=== PATIENT | male | born 1965 | race Caucasian/White ===

== ENCOUNTER 2019-06-15 19:20 | Emergency (ER) | payer OTHER ==
[2019-06-15 19:35] VITALS: BP 162/112
--- NOTE | 2019-06-15 19:51 | UC ---
Abdominal Pain Male HPI - HPI Summary HPI Summary: Patient is a 54-year-old male, history of hypertension, here with abdominal pain. Patient's had 2 days of right upper quadrant abdominal pain. Patient's pain comes after he eats. Yesterday, patient's pain was mild in nature. Today after eating lunch, patient had severe right upper quadrant pain that has not relented. Patient is associated nausea, loose stools, subjective fever, chills. Patient Valatie symptoms at this before. Patient has no vomiting, dysuria, hematuria, rectal bleeding. Medications reviewed - History of Current Complaint Chief Complaint: UCAbdominalPain Stated Complaint: ABD PAIN Time Seen by Provider: 06/15/19 19:39 Hx Obtained From: Patient Onset/Duration: Gradual Onset Severity Initially: Mild Severity Currently: Moderate Pain Intensity: 6 - Allergies/Home Medications Allergies/Adverse Reactions: Allergies Allergy/AdvReac Type Severity Reaction Status Date / Time No Known Allergies Allergy Verified 06/15/19 19:35 Home Medications: Home Medications Vacepa* 06/15/19 [History] PMH/Surg Hx/FS Hx/Imm Hx Previously Healthy: Yes Cardiovascular History: Hypertension - Surgical History Surgical History: Yes Surgery Procedure, Year, and Place: KNEE SURGERY - Family History Known Family History: Positive: Non-Contributory - Social History Alcohol Use: Occasionally Alcohol Amount: 8 DRINKS/WEEK Substance Use Type: None Smoking Status (MU): Never Smoked Tobacco Review of Systems All Other Systems Reviewed And Are Negative: Yes Constitutional: Positive: Fever, Chills ENT: Positive: Dental Pain. Negative: Sore Throat Respiratory: Negative: Shortness Of Breath, Cough Gastrointestinal: Positive: Abdominal Pain, Diarrhea, Nausea Genitourinary: Negative: Dysuria, Hematuria Physical Exam - Summary Physical Exam Summary: Vital Signs Reviewed: Yes A+Ox3, no distress Eyes: Conjunctiva Clear, PERRL. EOM intact and full ENT: Hearing grossly normal TM x 2 clear, moist, uvula midline, no exudate, no erythema Neck: Positive: Supple Respiratory: Positive: No respiratory distress, No accessory muscle use + CTA throughout no w/r Cardiovascular: RRR nl s1, s2 no m/r CBT <2 sec abd with tenderness to palpation the right upper quadrant. No rebound or guarding. Negative Cotter's sign. Musculoskeletal Exam: RODRIGUEZ x 4 without difficulty Strength Intact, ROM Intact Neurological: Positive: Alert, + sensation throughout Psychological: Positive: Normal Response To Family Skin: no rash, no ecchymosis Triage Information Reviewed: Yes Vital Signs: Initial Vital Signs Temp 97.9 F 06/15/19 19:29 Pulse 75 06/15/19 19:29 Resp 16 06/15/19 19:29 BP 162/112 06/15/19 19:29 Pulse Ox 95 06/15/19 19:29 Abd Pain Male Course/Dx - Course Course Of Treatment: Patient is here with right upper quadrant pain that is worse after eating. Patient has subjective fever at home. Given patient's pain location, symptoms constellation, patient was sent to the emergency department via POV for further evaluation. - Differential Dx/Clinical Impression Differential Diagnosis/HQI/PQRI: Abdominal Aortic Aneurysm, Appendicitis, Diverticulitis, Gall Bladder Disease, Prostatitis, Renal Colic, Other Provider Diagnosis: RUQ pain, Nausea, Chills Discharge - Sign-Out/Discharge Documenting (check all that apply): Patient Departure All imaging exams completed and their final reports reviewed: No Studies - Discharge Plan Condition: Stable Disposition: HOME-RECOMMEND TO ED Referrals: James Craig MD [Primary Care Provider] - Additional Instructions: Please go straight to the emergency department to have your abdominal pain worked up - Billing Disposition and Condition Condition: STABLE Disposition: Home-Recommend to ED
== END 2019-06-15 19:54 | disposition home health service (06) ==
LOC: UCEAST 19:20
DX: R10.11 Right upper quadrant pain (principal); R11.0 Nausea; R68.83 Chills (without fever); I10 Essential (primary) hypertension
CPT/HCPCS: 99212; G0463

== ENCOUNTER 2019-06-15 20:09 | Emergency (ER) | payer OTHER ==
[2019-06-15] MEDS ORDERED: NS 0.9% 1000 ML** 2,000 ML IV ONE (22:40)
[2019-06-15] MEDS ORDERED: Ketorolac INJ* 30 MG/ML 1 ML VIAL IV PUSH ONE (22:41)
[2019-06-15] MEDS ORDERED: Ondansetron INJ* 2 MG/ML VIAL IV ONE (22:41)
--- NOTE | 2019-06-15 22:45 | ED ---
Abdominal Pain/Male - HPI Summary HPI Summary: The patient is a 54 y/o M presenting to [facility] with a chief complaint of sudden onset epigastric pain starting yesterday around lunch time. He reports that he began to experience the epigastric pain that seemed to subside overnight, but then returned today after eating lunch, which consisted of chicken, vegetables, and pasta. He also ate breakfast this morning. With the abdominal pain, he has been experiencing loose, watery diarrhea, with the last episode occurring around 1430 today, and he has since had a decreased appetite, and he hasnt eaten dinner. He additionally c/o diaphoresis. The pain is also aggravated by movement and alleviated by rest. He denies hematochezia. He has not had this pain before. Currently, the pain is rated 4/10 in severity. PMHx: HTN, GERD, umbilical hernia (Dr. Moses). Nonsmoker, occasional EtOH, no substance use. - History of Current Complaint Chief Complaint: EDAbdPain Stated Complaint: ABD PAIN, SENT FROM [facility] PER PT Time Seen by Provider: 06/15/19 21:54 Hx Obtained From: Patient Onset/Duration: Sudden Onset, Lasting Days - since yesterday around lunch time, Still Present Timing: Lasting Days Severity Initially: Moderate Severity Currently: Mild Pain Intensity: 4 Pain Scale Used: 0-10 Numeric Location: Epigastric Radiates: No Character: Dull Aggravating Factor(s): Food, Movement Alleviating Factor(s): NPO, Other: - rest Associated Signs And Symptoms: Positive: Diaphoresis, Decreased Appetite, Nausea , Other - diarrhea. Negative: Blood in Stool, Vomiting - Allergies/Home Medications Allergies/Adverse Reactions: Allergies Allergy/AdvReac Type Severity Reaction Status Date / Time No Known Allergies Allergy Verified 06/15/19 20:12 PMH/Surg Hx/FS Hx/Imm Hx Endocrine/Hematology History: Denies: Hx Diabetes Cardiovascular History: Reports: Hx Hypertension GI History: Reports: Other GI Disorders - umbilical hernia being followed by Dr. Moses - Surgical History Surgical History: Yes Surgery Procedure, Year, and Place: KNEE SURGERY Infectious Disease History: No Infectious Disease History: Denies: Traveled Outside the [place] in Last 30 Days - Family History Known Family History: Positive: Hypertension - Social History Alcohol Use: Occasionally Alcohol Amount: 8 DRINKS/WEEK Hx Substance Use: No Substance Use Type: Reports: None Hx Tobacco Use: No Smoking Status (MU): Never Smoked Tobacco Review of Systems Positive: Skin Diaphoresis Positive: Abdominal Pain - epigastric, Diarrhea - losse, watery, Nausea, Other - NEGATIVE: hematochezia. Negative: Vomiting All Other Systems Reviewed And Are Negative: Yes Physical Exam - Summary Physical Exam Summary: Appearance: Well-appearing, Well-nourished, lying in bed comfortably Skin: Warm, dry, no obvious rash Eyes: sclera anicteric, no conjunctival pallor ENT: mucous membranes moist, pharynx appears normal Neck: Supple, nontender Respiratory: Clear to auscultation, no signs of respiratory distress Cardiovascular: Normal S1, S2. No murmurs. Normal distal pulses in tibial and radial bilaterally. Abdomen: Soft, mild epigastric tenderness, no peritoneal signs, normal active bowel sounds present Musculoskeletal: Normal, Strength/ROM Intact Neurological: A&Ox3, awake and alert, mentation is normal, speech is fluent and appropriate Psychiatric: affect is normal, does not appear anxious or depressed Triage Information Reviewed: Yes Vital Signs On Initial Exam: Initial Vitals Temp Pulse Resp BP Pulse Ox 98.6 F 69 16 202/136 96 06/15/19 20:11 06/15/19 20:11 06/15/19 20:11 06/15/19 20:11 06/15/19 20:11 Vital Signs Reviewed: Yes Diagnostics - Vital Signs Vital Signs Temp Pulse Resp BP Pulse Ox 06/15/19 20:11 98.6 F 69 16 202/136 96 - Laboratory Result Diagrams: 06/15/19 00:00 06/15/19 00:00 Lab Statement: Any lab studies that have been ordered have been reviewed, and results considered in the medical decision making process. - Ultrasound Gallbladder US Ultrasound Interpretation Completed By: Radiologist Summary of Ultrasound Findings: Impression: Nonobstructive right nephrolithiasis. ED physician has reviewed this report. Re-Evaluation - Re-Evaluation First Eval Re-Evaluation Time: 02:45 Comment: We discussed results and discharge plan. Abdominal Pain Male Course/Dx - Course Course Of Treatment: Patient is a 54 y/o M with cc of sudden onset epigastric pain starting yesterday around lunch time which subsided overnight and returned today after eating lunch with development of diarrhea that persisted throughout today. Additionally c/o decreased appetite, nausea, and diaphoresis. Denies blood in stool and vomiting. PMHx: umbilical hernia being followed by Dr. Moses. Upon physical exam, the patient exhibits mild epigastric tenderness without peritoneal signs. In the ED course, the patient was administered fluids , Zofran, and Toradol. Blood work within normal limits. Gallbladder Ultrasound Impression: Nonobstructive right nephrolithiasis. Patient will be discharged home. He agrees with this plan. - Diagnoses Provider Diagnoses: Abdominal pain Discharge - Sign-Out/Discharge Documenting (check all that apply): Patient Departure - Patient will be discharged home. Patient Received Moderate/Deep Sedation with Procedure: No - Discharge Plan Condition: Good Disposition: HOME Prescriptions: Ondansetron ODT TAB* [Zofran 4 MG Odt TAB*] 8 mg PO Q6H PRN #15 tab.odt PRN Reason: Nausea Patient Education Materials: Peptic Ulcer (ED) Referrals: Jill Ogden MD [Medical Doctor] - Additional Instructions: Continue your medication for now, and I have prescribed some zofran for your nausea. Hopefully things will start to get better with time, but if not or if you're getting worse we should see you back here. Otherwise please call the gastroenterology office tomorrow to make a followup appointment. - Billing Disposition and Condition Condition: GOOD Disposition: Home - Attestation Statements Document Initiated by Americo: Yes Documenting Scribe: Lucretia Le Provider For Whom Americo is Documenting (Include Credential): Dr. John Pascal MD Scribe Attestation: ILucretia scribed for Dr. John Pascal MD on 06/20/19 at 0140. Scribe Documentation Reviewed: Yes Provider Attestation: The documentation as recorded by the Lucretia stockton accurately reflects the service I personally performed and the decisions made by me, Dr. John Pascal MD Status of Americo Document: Viewed
[2019-06-16 00:06] LABS: ABS Basophils 0.1 10^3/ul (0-0.2); ABS Lymphocytes 1.3 10^3/ul (1.0-4.8); ABS Monocytes 0.6 10^3/ul (0-0.8); ABS Neutrophils 4.3 10^3/ul (1.5-7.7); Eosinophil % 0.6 %; Hematocrit 41 % (42-52); Hemoglobin 14.3 g/dL (14.0-18.0); Lymphocyte % 21.2 %; Mean Corpuscular HGB Conc 35 g/dL (31-36); Mean Corpuscular Hemoglobin 31 pg (27-31); Mean Corpuscular Volume 89 fL (80-94); Nucleated Red Blood Cells % 0.1; Platelet Count 187 10^3/uL (150-450); Red Cell Distribution Width 14 % (10-15); White Blood Count 6.3 10^3/uL (3.5-10.8)
[2019-06-16 00:21] LABS: Albumin 4.2 g/dL (3.2-5.2); Albumin/Globulin Ratio 1.8 (1-3); BUN/Creatinine Ratio 14.6 (8-20); C Reactive Protein 1.51 mg/L (<8.01); EGFR Non-African American 97.5 (>60); Globulin 2.3 g/dL (2-4); Potassium 3.8 mmol/L (3.5-5.0); Total Bilirubin 0.5 mg/dL (0.2-1.0); Total Protein 6.5 g/dL (6.4-8.9)
[2019-06-16 03:16] VITALS: BP 158/98
== END 2019-06-16 03:15 | disposition home or self-care (01) ==
LOC: ED 20:09
DX: R10.9 Unspecified abdominal pain (principal); I10 Essential (primary) hypertension; K21.9 Gastro-esophageal reflux disease without esophagitis; K42.9 Umbilical hernia without obstruction or gangrene; N20.0 Calculus of kidney
CPT/HCPCS: 36415; 76705; 80053; 83690; 85025; 86140; 96361; 96374; 96375; 99282; J1885; J2405

== ENCOUNTER 2019-10-21 09:53 | Day surgery (SDC) | payer OTHER ==
[~2019-10-21 09:53] MED LIST: Acetaminophen TAB* 325 MG PO ONE; Buffered Lidocaine 1% SYRIN* 1 ML/SYRINGE INTRADERM ONE; Famotidine IV* 10 MG/ML 2 ML (20 mg) IV ONE; Gabapentin CAP(*) 300 MG PO ONE; Lactated Ringers 1000 ML Bag* 1,000 ML IV SCH
[2019-10-21] MEDS ORDERED: Famotidine IV* 10 MG/ML 2 ML (20 mg) ONE (11:42)
[2019-10-21] MEDS ORDERED: Buffered Lidocaine 1% SYRIN* 1 ML/SYRINGE INTRADERM ONE (11:42)
[2019-10-21] MEDS ORDERED: Gabapentin CAP(*) 300 MG ONE (11:42)
[2019-10-21] MEDS ORDERED: Acetaminophen TAB* 325 MG ONE (11:42)
[2019-10-21] MEDS ORDERED: ceFAZolin 2 GM in NS PREMIX(*) 2 GM/100 ML BAG IVPB ONE (11:42)
[2019-10-21] MEDS ORDERED: Midazolam* 1 MG/ML 2 ML VIAL (2 MG) ONE (12:01)
[2019-10-21] MEDS ORDERED: fentaNYL* 50 MCG/ML 2 ML VIAL (100 MCG VIAL) ONE ×2 (12:01→13:12)
[2019-10-21] MEDS ORDERED: Lidocaine 1% INJ* 10 MG/ML 30 ML SDV ONE (12:50)
[2019-10-21] MEDS ORDERED: Bupivacaine 0.25% EPI 200,000* 30 ML SDV ONE (12:51)
[2019-10-21] MEDS ORDERED: Propofol* 10 MG/ML 20 ML BTL ONE (12:58)
[2019-10-21] MEDS ORDERED: Dexamethasone IV* 4 MG/ML 1 ML (4 MG) ONE (12:58)
[2019-10-21] MEDS ORDERED: Ketorolac INJ* 30 MG/ML 1 ML VIAL ONE (12:58)
[2019-10-21] MEDS ORDERED: Lidocaine 2% PF * 5 ML VIAL ONE (12:58)
[2019-10-21] MEDS ORDERED: PROCHLORPERAZINE INJ 5 MG/ML 2 ML VIAL IV PRN (13:10)
[2019-10-21] MEDS ORDERED: fentaNYL* 50 MCG/ML 2 ML VIAL (100 MCG VIAL) IV PRN (13:10)
[2019-10-21] MEDS ORDERED: DiMENhydriNATE IV* 50 MG/ML VIAL IV PUSH PRN (13:10)
[2019-10-21] MEDS ORDERED: HYDROcodone/ACETAMIN 5-325 MG* 1 TAB PO PRN ×2 (13:10)
[2019-10-21] MEDS ORDERED: Ondansetron INJ* 2 MG/ML VIAL IV PRN (13:10)
[2019-10-21] MEDS ORDERED: Naloxone* 0.4 MG/ML 1 ML VIAL IV PRN (13:10)
[2019-10-21] MEDS ORDERED: Ondansetron INJ* 2 MG/ML VIAL ONE (13:58)
--- NOTE | 2019-10-21 14:26 | OP ---
Operative Report - Blank - Operative Report Date of Operation: 10/21/19 Note: OPERATIVE NOTE Pre-Operative Diagnosis:Umbilical hernia Post-Operative Diagnosis:Same Procedure:Open repair with mesh of umbilical hernia Surgeon: Franklyn Moses MD Supercalender Operator: Sabina Gresham MD Anesthesia: Local with MAC with Dr. Benitez IVF:1 liter of crystalloid EBL:min Specimen:None Drain: none Wound Class:One Findings: 8.[address] hernia patch TO PACU
[2019-10-21 16:04] VITALS: BP 132/94
--- NOTE | 2019-10-21 22:04 | OP ---
CC: [facility] OPERATIVE REPORT: DATE OF OPERATION: 10/21/19 DATE OF : 63 SURGEON: Igor Moses MD. IT SECURITY MANAGER: Leanne Gresham MD. ANESTHESIOLOGIST: Dr. Benitez. ANESTHESIA: General with local. PRE-OP DIAGNOSIS: Umbilical hernia. POST-OP DIAGNOSIS: Umbilical hernia. OPERATIVE PROCEDURE: Open repair with mesh of an umbilical hernia. ESTIMATED BLOOD LOSS: Minimal. IV FLUIDS: 1 L of crystalloid. SPECIMEN: None. DRAINS: None. COMPLICATIONS: None. WOUND CLASSIFICATION: I. FINDINGS: The umbilical hernia was repaired with a Ventralex ST Bard 8.2 cm circular mesh. DESCRIPTION OF PROCEDURE: Written informed consent was obtained, the abdomen was marked with indelib le ink and preoperative antibiotics were administered. The patient was taken to the operating room a nd placed in the supine position. Sequential compression devices and a warming blanket were applied. The anesthesia was administered. The abdomen was prepped and draped in the usual sterile fashion. Time-out verification was completed. 1% lidocaine mixed with 0.25% Marcaine was infiltrated extensively around the umbilicus and a semicir cular incision was made inferior to the umbilicus and carried down to the midline fascia inferior to the umbilicus. The umbilical stalk was encircled with a 1/4 inch Kan drain and the skin overlyin g the apparent preperitoneal fat hernia through the hernia defect was excised and from the skin. At this point, we were able to identify the hernia defect and the fascial edge was approximately 2 to 2.5 cm in diameter. The peritoneal cavity was not entered at this point. It was not entered at all during the remaining portion of this dissection. The preperitoneal space was then developed using a combination of blunt and sharp dissection just und erneath the muscle in preparation for placement of the underlying mesh. Hemostasis in the extraperitoneum was achieved. An 8.2 cm circular Bard Ventralex ST mesh was then placed into this position with a care to prevent w rinkling and it covered the defect nicely. It was sutured into position using 4 separate 0-Vicryl ho rizontal mattress sutures to the underside of the fascia. The [place] fascia was then closed in a transverse orientation with interrupted #1 Ethibond sutures. The wound was then closed in layers of 3-0 Vicryl and 4-0 Vicryl suture. Steri-Strips and sterile dr essings were applied. The patient tolerated the procedure well, and was taken to recovery room in st able condition. [id number]/[facility] #: [id number]
== END 2019-10-21 16:10 | disposition home or self-care (01) ==
LOC: OR 09:53
PROVIDERS: ATTEND Surgery
PROC: 0WUF0JZ Supplement Abdominal Wall with Synthetic Substitute, Open Approach (ICD-10-PCS; principal; 2019-10-21 11:30)
DX: K42.9 Umbilical hernia without obstruction or gangrene (principal); K21.9 Gastro-esophageal reflux disease without esophagitis
CPT/HCPCS: A9270-GY; C1781; J0690; J1100; J1885; J2250; J2405; J2704; J3010

== ENCOUNTER 2020-01-14 14:21 | Inpatient (IN) | payer OTHER ==
[2020-01-14] MEDS ORDERED: EPINEPHrine SYR 0.1MG/ML* SYRINGE ONE ×8 (14:27→18:54)
[2020-01-14] MEDS ORDERED: Sodium Bicarbonate 8.4%* 50 ML SYRINGE ONE ×4 (14:30→18:57)
--- NOTE | 2020-01-14 14:31 | ED ---
Cardiac Resuscitation - HPI Summary HPI Summary: Patient is a 54 year old male brought in by EMS for shortness of breath. Patient recently travelled from [place] to [place]. Patient felt SOB since yesterday. Patient said about 5 words, rolled over to his side, stopped responding, and lost pulses. At that time (1417), an ABC alert was called. Patient initially in PEA arrest after being placed on the monitor. Patient had IO inserted for access. Patient received multiple rounds of CPR, at one point was in VFIB, and received 200 jolts of defibrillation. Patient received multiple rounds of epinephrine, 2 rounds of BICARB, 2 grams of magnesium, 4 mgs of Narcan, and One amp of dextrose. 50 mgs of TPA was given for possible PE due to recent travel. Patient was in PEA arrest for most of the resuscitation. Patient eventually returned to spontaneous circulation, when an EKG was performed which showed slight lateral ST elevations. During the resuscitation, patient was intubated with an 8-0 tube and a triple lumen CVL was placed in the right femoral vein. Patient is a level 5 caveat due to extremis. - History of Current Complaint Stated Complaint: DIFF BREATHING Hx Obtained From: EMS Hx From Patient Unobtainable Due To: Extremis Arrest Witnessed: Yes - Prehospital Findings Airway: Patent Breathing: Respiratory Distress Circulation/Rhythm: Spontaneous Pulses Present Disability/Neurologic: Responsive - Prehospital Response Airway: Patent Circulation/Rhythm: Spontaneous Pulses Present - Allergies/Home Medications Allergies/Adverse Reactions: Allergies Allergy/AdvReac Type Severity Reaction Status Date / Time No Known Allergies Allergy Verified 10/14/19 09:03 Home Medications: Home Medications Tadalafil [Cialis] 5 mg PO QAM 08/29/16 [History Confirmed 10/21/19] Icosapent Ethyl [Vascepa] 0.5 gm PO BID 09/05/19 [History Confirmed 10/21/19] Metoprolol Tartrate TAB* [Lopressor TAB*] 25 mg PO BID 10/14/19 [History Confirmed 10/21/19] Omeprazole 40 mg PO QAM 10/14/19 [History Confirmed 10/21/19] Valsartan/HCTZ 160/12.5(NF) [Diovan HCT 160/12.5 (NF)] 1 tab PO QAM 10/14/19 [ History Confirmed 10/21/19] - Past Medical History Past Medical History: Unobtainable Due to Extremis - Family History Family History: Unobtainable Due to Extremis - Social History Social History: Unobtainable Due to Extremis - Review of Systems Review of Systems: Other: - Difficulty breathing, Cardiac Arrest. Rest is level 5 caveat due to extremis as patient arrested before full story could be obtained. Physical Examination - Summary Physical Exam Summary: Constitutional: Initially in respiratory distress, then unresponsive, CPR in progress. Skin: Purple and mottled skin HENT: Normocephalic; Atraumatic Eyes: SClera anicteric, no conjuctival pallor Neck: (-) JVD, (-) Tracheal deviation Cardio: No pulses palpable prior to resuscitation. Pulmonary/Chest wall: Initially tachypnic and in respiratory distress, and then no effort. Patient intubated. Abd: Soft Musculoskeletal: (-) Edema. No signs of trauma. Lymph: (-) Cervical adenopathy Neuro: Unresponsive Psych: deferred - Physical Examination Triage Information Reviewed: Yes Procedures - Sedation Patient Received Moderate/Deep Sedation with Procedure: No - Central Line Right Femoral Central Line Position: femoral (R) Complications: none - Intubation Time of Intubation: 14:18 Intubation Method: orotracheal Tube Size (cm): 8.0 Intubation Complications: no complications Progress/Xray Impression: 3 millerblade was used to intubate. CO2 after the procedure was roughly 20. Diagnostics - Laboratory Result Diagrams: 01/14/20 14:50 01/14/20 14:50 Lab Statement: Any lab studies that have been ordered have been reviewed, and results considered in the medical decision making process. - EKG 1446 Cardiac Rate: Tachycardia - 112 BPM EKG Rhythm: Sinus Tachycardia Summary of EKG Findings: Slight lateral ST elevations. ED Physician has reviewed this report. 1516 Cardiac Rate: Tachycardia - 125 BPM EKG Rhythm: Sinus Tachycardia Summary of EKG Findings: Inferior ND. ED Physician has reviewed and interpreted this EKG. Re-Evaluation - Re-Evaluation First Eval Re-Evaluation Time: 15:21 Comment: Repeat changes on the monitor indicated repeat EKG which shows inferior ND. Will call Dr. Levy. STEMI alert called at 1529. Cardiac Resus. Course/Dx - Course Course Of Treatment: Patient is a 54 year old male brought in by EMS for shortness of breath. Patient recently travelled from [place] to [place]. Patient felt SOB since yesterday. Patient rolled over to his side, stopped responding, and lost pulses. At that time, an ABC alert was called. Patient initially in PEA arrest after being placed on the monitor. Patient had IO inserted for access. Patient received multiple rounds of CPR, at one point was in VFIB, and received 200 jolts of defibrillation. Patient received multiple rounds of epinephrine, 2 rounds of BICARB, 2 grams of magnesium, 4 mgs of Narcan , and One amp of dextrose. 50 mgs of TPA was given for possible PE due to recent travel. Patient was in PEA arrest for most of the resuscitation. Patient eventually returned to spontaneous circulation, when an EKG was performed which showed slight lateral ST elevations. Monitor indicated repeat EKG at 1516, which showed inferior ND. During the resuscitation, patient was intubated with an 8-0 tube and a triple lumen CVL was placed in the right femoral vein. Patient was admitted to the ICU. Prior to going to the ICU, patient went to CT scan to get CTA of his chest. In CT scan, patient did lose pulses twice. Patient was resuscitated by the ICU doctor. - Diagnoses Provider Diagnoses: Cardiac arrest with successful resuscitation, Myocardial infarction - Critical Care Time Critical Care Time: 75-104 min - 150 mins Discharge ED - Sign-Out/Discharge Documenting (check all that apply): Patient Departure - Admitted to Dr. Chen, Rn Clinical - Discharge Plan Condition: Stable Disposition: ADMITTED TO [facility] - Billing Disposition and Condition Condition: STABLE Disposition: Admitted to [facility] - Attestation Statements Document Initiated by Americo: Yes Documenting Scribe: James Todd Provider For Whom Americo is Documenting (Include Credential): Spencer Tidwell MD Scribe Attestation: IJames, scribed for Spencer Tidwell MD on 01/14/20 at 1807. Scribe Documentation Reviewed: Yes Provider Attestation: The documentation as recorded by the James stockton accurately reflects the service I personally performed and the decisions made by me, Spencer Tidwell MD Status of Scribe Document: Viewed
[2020-01-14] MEDS ORDERED: Alteplase* 100 MG VIAL ONE (14:32)
[2020-01-14] MEDS ORDERED: Magnesium Sulfate IV* 0.5 GM/ML 2 ML VIAL (1 GM) ONE ×2 (14:38→18:30)
[2020-01-14] MEDS ORDERED: Naloxone* 0.4 MG/ML 10 ML VIAL ONE ×2 (14:41)
[2020-01-14] MEDS ORDERED: Sodium Bicarbonate 8.4% IV* 100 MEQ in D5W 1000 ML BAG* 1,000 ML IV SCH (15:00)
[2020-01-14] MEDS ORDERED: Naloxone* 2 MG in NS 0.9% 250 ML* 245 ML IV SCH (15:00)
--- OUTSIDE RECORDS SUMMARY | 2020-01-14 15:10 | XMS REPORT | Continuity of Care Document ---
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 Problems Description No Information Available Social History Type Date Description Comments Sex Unknown ETOH Use Occasionally consumes alcohol Tobacco Use Start: Unknown Patient has never smoked Recreational Drug Use Denies Drug Use Smoking Status Reviewed: 12/19/19 Patient has never smoked Exercise Type/Frequency Exercises regularly Allergies, Adverse Reactions, Alerts Description No Known Drug Allergies Medications Active Medications SIG Qnty Indications Ordering Provider Date Cialis 1 by mouth every Unknown 5mg Tablets day Vascepa 1 by mouth twice Unknown Capsules a day Omeprazole 1 by mouth every Unknown 20mg Capsules day DR Canalesrtan-Hydrochlorot 1 by mouth every Unknown hiazide day 80-12.5mg Tablets Metoprolol Tartrate Take 1 Tablet By Unknown 25mg Mouth Two Times Tablets Daily With Food Immunizations Description No Information Available Vital Signs Date Vital Result Comment 12/19/2019 8:55am Height 70 inches 5'10" Weight 213.00 lb Heart Rate 70 /min BP Systolic 130 mmHg BP Diastolic 82 mmHg O2 % BldC Oximetry 94 % BMI (Body Mass Index) 30.6 kg/m2 11/28/2019 7:04am Height 70 inches 5'10" Weight 216.00 lb Heart Rate 60 /min BP Systolic Sitting 120 mmHg BP Diastolic Sitting 86 mmHg O2 % BldC Oximetry 95 % BMI (Body Mass Index) 31.0 kg/m2 Neck Circumference in inches 16.75 Results Description No Information Available Procedures Date Code Description Status 11/29/2019 51117 Sleep Study Unattended,HRT Rate,Oxygen Sat,Resp Completed Effort/Airflow 10/21/2019 96846 Repair Hernia Umbilical > 5 Yrs, Reducible Completed 10/21/2019 43664 Repair Hernia Umbilical > 5 Yrs, Reducible Completed Medical Devices Description No Information Available Encounters Type Date Location Provider Dx Diagnosis Office Visit 11/28/2019 [facility] Nevaeh Whitten MD R06.83 Snoring 7:30a [facility] R53.83 Other fatigue Office Visit 09/27/2019 10:30a Surgical Igor Tristan K42.9 [facility] without [facility] obstruction or gangrene Assessments Date Code Description Provider 12/19/2019 G47.33 Obstructive sleep apnea (adult) (pediatric) Tonya Harry NP 12/19/2019 R53.83 Other fatigue Tonya Harry NP 11/29/2019 G47.33 Obstructive sleep apnea (adult) (pediatric) Nevaeh Whitten MD 11/28/2019 R06.83 Snoring Nevaeh Whitten MD 11/28/2019 R53.83 Other fatigue Nevaeh Whitten MD 10/27/2019 K42.9 Umbilical hernia without obstruction or Igor Moses MD gangrene 10/21/2019 K42.9 Umbilical hernia without obstruction or Leanne Gresham MD gangrene 10/21/2019 K42.9 Umbilical hernia without obstruction or Igor Moses MD gangrene 10/04/2019 K42.9 Umbilical hernia without obstruction or Igor Moses MD gangrene 09/27/2019 K42.9 Umbilical hernia without obstruction or Igor Moses MD gangrene Plan of Treatment Future Appointment(s):02/14/2020 9:00 am - Tonya Harry NP at [facility]12/19/2019 - Tonya Harry NPG47.33 Obstructive sleep apnea (adult) (pediatric)Follow up:6-8 weeks ([facility]) Recommendations:You are being set up with CPAP for your sleep apnea [facility] They will call you to set up an appointment to get fit for a mask and cotton picker your machine. If youhave difficulty with your equipment, or need to replace your mask or hoses, please contact your homecare agency. If you have any further questions, please call the [facility] at [phone] If you have any sleepiness while driving you MUST avoid operating a vehicle or machinery. If youfeel tired while driving, press puller and take a nap or switch drivers. If you know you are sleepy andneed to go somewhere, arrange for a ride or use public transportation. It is very important to not risk your safety or the safety of others.R53.83 Other fatigue Functional Status Description No Information Available Mental Status Description No Information Available Referrals Description No Information Available
[2020-01-14] MEDS ORDERED: Rocuronium* 10 MG/ML VIAL ONE (15:11)
[2020-01-14] MEDS ORDERED: Iodixanol* (CONTRAST) 320 MG/ML 100 ML SDV IV ONE (15:13)
[2020-01-14 15:21] LABS: ABS Basophils 0.1 10^3/ul (0-0.2); ABS Lymphocytes 2.8 10^3/ul (1.0-4.8); ABS Neutrophils 15.1 10^3/ul (1.5-7.7); ABS Nucleated RBC 0.1 10^3/ul; Eosinophil % 0.2 %; Hematocrit 63 % (42-52); Hemoglobin 20.3 g/dL (14.0-18.0); Lymphocyte % 14.6 %; Mean Corpuscular HGB Conc 33 g/dL (31-36); Mean Corpuscular Hemoglobin 31 pg (27-31); Mean Corpuscular Volume 95 fL (80-94); Mean Platelet Volume 7.6 fL (7.4-10.4); Nucleated Red Blood Cells % 0.6; Platelet Count 151 10^3/uL (150-450); Red Blood Count 6.57 10^6 /uL (4.18-5.48); Red Cell Distribution Width 15 % (10-15)
[2020-01-14] MEDS ORDERED: Heparin for STEMI(*) 5,000 UNITS/ML 1 ML VIAL IV ONE ×2 (15:27→15:32)
[2020-01-14] MEDS ORDERED: Heparin DRIP 25,000 UNITS(*) 25,000 UNITS/500 ML BAG IV SCH (15:30)
[2020-01-14] MEDS ORDERED: Heparin DRIP 25,000 UNITS(*) 25,000 UNITS/500 ML BAG ONE (15:33)
[2020-01-14 15:40] LABS: Albumin 2.1 g/dL (3.2-5.2); Alkaline Phosphatase 65 U/L (34-104); BUN/Creatinine Ratio 13.2 (8-20); Blood Urea Nitrogen 34 mg/dL (6-24); Calcium 8.8 mg/dL (8.6-10.3); Chloride 96 mmol/L (101-111); EGFR African American 31.6 (>60); EGFR Non-African American 26.1 (>60); Globulin 2.1 g/dL (2-4); Glucose 312 mg/dL (70-100); Sodium 136 mmol/L (135-145); Total Protein 4.2 g/dL (6.4-8.9)
[2020-01-14 15:42] LABS: AST 592 U/L (13-39); Potassium 4.6 mmol/L (3.5-5.0)
[2020-01-14 15:44] LABS: Anion Gap 26 mmol/L (2-11); CO2 Carbon Dioxide 14 mmol/L (22-32); Troponin I 1.84 ng/mL (<0.03)
[2020-01-14] MEDS ORDERED: Norepinephrine 16MCG/ML IVPRE* 4,000 MCG/250 ML BAG IV ONE ×2 (15:52→18:35)
[2020-01-14] MEDS ORDERED: Heparin 2 UNITS/ML IVPREMIX* 3,000 ML IV ONE (15:53)
[2020-01-14] MEDS ORDERED: Iodixanol 320 (CONTRAST) 100 ML SDV ONE (15:53)
[2020-01-14] MEDS ORDERED: VERAPAMIL 2.5 MG/ML 2 ML VIAL ** 5 mg/2 ml ONE (15:55)
[2020-01-14] MEDS ORDERED: Heparin(*) 1000 UNIT/ML 10 ML VIAL CATH LAB IV ONE (15:55)
[2020-01-14] MEDS ORDERED: Lidocaine 1% INJ* 10 MG/ML 30 ML SDV ONE (15:55)
[2020-01-14] MEDS ORDERED: nitroGLYCERIN DRIP* 25,000 MCG/250 ML BTL ONE (15:55)
[2020-01-14] MEDS ORDERED: Clopidogrel TAB* 300 MG ONE (15:56)
[2020-01-14] MEDS ORDERED: Aspirin 81 mg CHEW TAB* 81 MG TAB.CHEW ONE (15:57)
[2020-01-14] MEDS ORDERED: Heparin VIAL(*) 5000 UNITS/ML VIAL (FIVE THOUSAND) SUBCUT SCH (16:00)
[2020-01-14 16:05] LABS: ALT 770 U/L (7-52)
[2020-01-14] MEDS ORDERED: Ticagrelor* 90 MG TAB PO ONE (16:11)
[2020-01-14] MEDS ORDERED: Aspirin TAB* 325 MG PO ONE (16:11)
[2020-01-14] MEDS ORDERED: VASOPRESSIN 20 UNITS/ML 1 ML VIAL ONE ×4 (16:29→19:46)
[2020-01-14] MEDS ORDERED: Norepinephrine 16MCG/ML IVPRE* 4,000 MCG/250 ML BAG IV SCH ×2 (17:00)
[2020-01-14 17:30] VITALS: BP 74/45
[2020-01-14] MEDS ORDERED: EPINEPHRINE 1 MG/ML 1 ML VIAL ONE (17:58)
[2020-01-14] MEDS ORDERED: Amiodarone IV VIAL** 50 MG/ML 3 ML (150 MG) VIAL ONE (18:25)
--- NOTE | 2020-01-14 20:54 | HP ---
H&P (Free Text) History and Physical: History and Physical -- Critical Care Limitations in history/physical: intubated/encephalopathy HPI: 54y M w/pmhx of HTN, GERD; presented from home via EMS for shortness of breath x1 day (as per history later). She told us later that subjective fever/chills x1-2 days, not feeling well yesterday. History given was recent travel from [place] to [place]. In ER on arrival he was to be seen by ER physician and on initial arrival and contact he became unresponsive, ambrocio/blue appearing. CPR was started by them immediately, given 1 shock, then PEA rhythm, multiple EPI/bicarb, noted to be hypoxic during code and given history of travel recently he was given bolus tpa 50mg IV in ER, narcan 4mg. ROSC was achieved, he was intubated at some point during code. Post code i evaluated patient , he was unresponsive, bitting down, given rocuronium 50mg iv push by me. His pupils were sluggish but reactive, cough+. BP slowly dropped and he was started on levophed. A left femoral central line was already in place by ER during code, as well as I/O. Of note, given his symptoms from EMS he was told to be suspected a PUI for COVID19 and placed on contact/airborne precautions before the arrest. A second EKG was done during my evaluation and it demonstrated acute ST elevations in inferior leads compared to 1st post code EKG. INterventional cardiology had arrived for evaluation. IV heparin bolus 4000u were given as a push prior to Cardiology arrival by ED. During evaluation , we decided a possible cath may be required. On further evaluation he started to have bright red blood being suctioned from OGT and hence due to ongoing GI Bleeding crushed aspirin/plavix were not given in addition to a IV heparin drip.. His hemodynamics started to deteriorate further, vasopressin added. We pushed for a CTA of chest given this history of URI symptoms to evaluation of pneumonitis, r/o PE, possible Aortic dissection for small pericardial effusion seen on bedside ECHO. Unclear if a cath would be attempted at this point given bright blood coming from OGT. He was taken to CT scan where shortly after being placed on table he lost pulse and was PEA, cpr restarted and another 4 rounds of CPR given with ROSC, now on epinephrine infusion. He was set up for CT and patient arrested again for 10 min PEA. I talked to family in waiting room, updated them of current events and ongoing CPR, this discussion was had with Dr Levy. On return to CT scan, ROSC achieved. CT scan completed. Brought to ICU, this after 3 cardiac arrests with ongiong hemodynamic instability. In ICU, he arrest briefly after arrival. This time a 45 min code was ongoing, emergent IABP placement into Right femoral artery by St Levy for some attempted hemodynamic stabilization, 2 units O-negative blood transfused emergently for ongoing upper GI bleeding via OGT (bright red). Patient unable to obtain pulse after 45min, became asystolic with intermittent ventricular escape beats, no pulse, no spontaneous respirations. He was pronounced at 1857 on 01/14/2020, family aware. motor vehicle examiner notified and accepted patient for evaluation/ autopsy. ED/floor Course: as above ROS: ROS unable to be obtained secondary to intubated/unresponsiv PMHx: HTN, GERD PSHx: unknown Family History: unknown Social History: no smoking as per ; otherwise unknown on arrival Allergies: NKDA Home Medications: unknown Tele: NSR Vitals: Vital Signs Temp 96.4 F 01/14/20 18:04 Pulse 122 01/14/20 18:00 Resp 18 01/14/20 17:29 BP 74/45 01/14/20 17:29 Pulse Ox 92 01/14/20 17:58 Intake & Output 01/14/20 01/14/20 01/15/20 06:59 18:59 06:59 Weight 104.326 kg O2/Vent: AC 100%, peep 20; rate 18, tv 500 Infusions: Levophed 50, vasopressin 0.04, epinephrine 20, dobutamine 15 Current Medications: Heparin Sodium (Porcine) (Heparin Vial(*)) 0 units SUBCUT .PER PRTOCOL JOSÉ ANTONIO Naloxone HCl 2 mg/ Sodium (Chloride) 250 mls @ 0 mls/hr IV .PER RATE JOSÉ ANTONIO Last Admin: 01/14/20 15:40 Dose: 1 mls/hr Sodium Bicarbonate 100 meq/ (Dextrose) 1,100 mls @ 0 mls/hr IV .Q24H JOSÉ ANTONIO Last Admin: 01/14/20 15:43 Dose: 125 mls/hr Heparin Sodium/Dextrose (Heparin Drip 25,000 Units(*)) 25,000 units in 500 mls @ 0 mls/hr IV PER RATE JOSÉ ANTONIO; Protocol Last Admin: 01/14/20 16:13 Dose: Not Given Norepinephrine Bitartrate (Levophed 16 Mcg/Ml Premix*) 4,000 mcg in 250 mls @ 112.5 mls/hr IV .PER PROTOCOL JOSÉ ANTONIO; Protocol Last Admin: 01/14/20 16:17 Dose: 112.5 mls/hr Norepinephrine Bitartrate (Levophed 16 Mcg/Ml Premix*) 4,000 mcg in 250 mls @ 150 mls/hr IV .PER PROTOCOL JOSÉ ANTONIO; Protocol Last Admin: 01/14/20 16:18 Dose: 150 mls/hr Physical Exam: Constitutional: intubated, unresponsive Head: normocephalic, atraumatic; cyanotic/ambrocio appearing Eyes: no pallor, no icterus ENT: moist mucous membranes Neck: soft, supple, no jvd, no stridor CVS: normal rate, regular, no murmur Chest/Resp: bilateral air entry, no rhales, no wheeze, no rhonchi, no acc muscle use Abdomen/GI: soft, nontender, nondistended, BS+ Ext/Msk: warm, pulses+, no edema Skin: intact, warm Neuro: intubated, unresponsive; pupils 4-5mm but reactive , cough+ initially Psych: unable to assess Labs: Laboratory Results - last 24 hr 01/14/20 01/14/20 01/14/20 14:50 14:50 14:50 WBC 19.0 H RBC 6.57 H Hgb 20.3 H Hct 63 H MCV 95 H MCH 31 MCHC 33 RDW 15 Plt Count 151 MPV 7.6 Neut % (Auto) 79.6 Lymph % (Auto) 14.6 Gaston % (Auto) 5.1 Eos % (Auto) 0.2 Baso % (Auto) 0.5 Absolute Neuts (auto) 15.1 H Absolute Lymphs (auto) 2.8 Absolute Monos (auto) 1.0 H Absolute Eos (auto) 0.0 Absolute Basos (auto) 0.1 Absolute Nucleated RBC 0.1 Nucleated RBC % 0.6 Sodium 136 Potassium 4.6 Chloride 96 L Carbon Dioxide 14 L* Anion Gap 26 H BUN 34 H Creatinine 2.57 H Est GFR ( Amer) 31.6 Est GFR (Non-Af Amer) 26.1 BUN/Creatinine Ratio 13.2 Glucose 312 H Lactic Acid Calcium 8.8 Total Bilirubin 0.70 AST 592 H ALT 770 H Alkaline Phosphatase 65 Troponin I 1.84 H* B-Natriuretic Peptide Total Protein 4.2 L Albumin 2.1 L Globulin 2.1 Albumin/Globulin Ratio 1.0 Blood Type O Negative Antibody Screen Negative Crossmatch See Detail 01/14/20 01/14/20 14:52 14:52 WBC RBC Hgb Hct MCV MCH MCHC RDW Plt Count MPV Neut % (Auto) Lymph % (Auto) Gaston % (Auto) Eos % (Auto) Baso % (Auto) Absolute Neuts (auto) Absolute Lymphs (auto) Absolute Monos (auto) Absolute Eos (auto) Absolute Basos (auto) Absolute Nucleated RBC Nucleated RBC % Sodium Potassium Chloride Carbon Dioxide Anion Gap BUN Creatinine Est GFR ( Amer) Est GFR (Non-Af Amer) BUN/Creatinine Ratio Glucose Lactic Acid 16.1 H* Calcium Total Bilirubin AST ALT Alkaline Phosphatase Troponin I B-Natriuretic Peptide 288 H Total Protein Albumin Globulin Albumin/Globulin Ratio Blood Type Antibody Screen Crossmatch Imaging: CTA chest - reviewed findings ; no clear infiltrates noted by them; ?dissection ; no central or secondary PEs Assessment: 54y M w/pmhx of HTN, GERD; presented from home via EMS for shortness of breath x1 day (as per history later). She told us later that subjective fever/chills x1-2 days, not feeling well yesterday. History given was recent travel from [place] to [place]. In ER on arrival he was to be seen by ER physician and on initial arrival and contact he became unresponsive, ambrocio/blue appearing. CPR was started by them immediately, given 1 shock, then PEA rhythm, multiple EPI/bicarb, noted to be hypoxic during code and given history of travel recently he was given bolus tpa 50mg IV in ER, narcan 4mg. ROSC was achieved, he was intubated at some point during code. Post code i evaluated patient , he was unresponsive, bitting down, given rocuronium 50mg iv push by me. His pupils were sluggish but reactive, cough+. BP slowly dropped and he was started on levophed. A left femoral central line was already in place by ER during code, as well as I/O. Of note, given his symptoms from EMS he was told to be suspected a PUI for COVID19 and placed on contact/airborne precautions before the arrest. A second EKG was done during my evaluation and it demonstrated acute ST elevations in inferior leads compared to 1st post code EKG. INterventional cardiology had arrived for evaluation. IV heparin bolus 4000u were given as a push prior to Cardiology arrival by ED. During evaluation , we decided a possible cath may be required. On further evaluation he started to have bright red blood being suctioned from OGT and hence due to ongoing GI Bleeding crushed aspirin/plavix were not given in addition to a IV heparin drip.. His hemodynamics started to deteriorate further, vasopressin added. We pushed for a CTA of chest given this history of URI symptoms to evaluation of pneumonitis, r/o PE, possible Aortic dissection for small pericardial effusion seen on bedside ECHO. Unclear if a cath would be attempted at this point given bright blood coming from OGT. He was taken to CT scan where shortly after being placed on table he lost pulse and was PEA, cpr restarted and another 4 rounds of CPR given with ROSC, now on epinephrine infusion. He was set up for CT and patient arrested again for 10 min PEA. I talked to family in waiting room, updated them of current events and ongoing CPR, this discussion was had with Dr Levy. On return to CT scan, ROSC achieved. CT scan completed. Brought to ICU, this after 3 cardiac arrests with ongiong hemodynamic instability. In ICU, he arrest briefly after arrival. This time a 45 min code was ongoing, emergent IABP placement into Right femoral artery by St Levy for some attempted hemodynamic stabilization, 2 units O-negative blood transfused emergently for ongoing upper GI bleeding via OGT (bright red). Patient unable to obtain pulse after 45min, became asystolic with intermittent ventricular escape beats, no pulse, no spontaneous respirations. He was pronounced at 1857 on 01/14/2020, family aware. motor vehicle examiner notified and accepted patient for evaluation/ autopsy. -Cardiac Arrest -Acute hypoxic respiratory failure -?Inferior Wall STEMI -r/o viral illness -Upper GI hemorrhage -Encephalopathy -LINNEA -Shock liver Plan: Neuro- -post arrest did not wake, had initially reflexes; was given rocuronium for synchrony -CT head was not able to be due to instability in CT room -Delirium prec; avoid BDZ CVS- -started on multiple pressors levo/vaso/epi, -IABP placed bedside emergently -PRBC for tranfusion for bleeding -s/p TPA 50mg bolus in ER for ?PE -unclear if true STEMI, reviewed EKGS and no initially EKG by EMS, only 1st post code whcih had no ST changes; ST changes developed later. WE had a discussion and unclear if STEMI was primary, secondary, ?myocarditis -was not given DAPT therapy due to bleeding; was given IV heparin bolus in ER and tpa from code. -ruled out PE -interventional cardiiology was on board and bedside throughout -Titrate Pressors to Maintain MAP>65 Resp- -Intubated; on 100%, peep 20 -CTA reviewed -was send COVID and RVP and influenza for rule outs; placed on contact/airborne prec -Wean Fio2 to keep sat>92% -Bronchodilators PRN, Aspiration prec, Pulmonary Toilet -VAP bundle ID- afebrile. wbc 19 noted on labs -suspect this was reactive initially. plan would have been for IV abx if hemodynamics stabilized -did not suspect a rapid sepsis/septic shock state here. again no clear vitals indicating SIRS GI- -NPO -UGI hemorrhage, bright red blood from OGT+; placed on intermittent suction -was not given antiplatelets; was on tpa prior and IV heparin bolus -plan would have been for PPI infusion -shock liver+; suspect from hypoperfusion Renal- -LINNEA; suspect ischemic injury -strict I/O, replete to keep K>4, Mg>2 -penn as indicated Heme- -hg was 20 on arrival; GI bleeding+; given stat 2 prbc Endo- Maintain BG<200, insulin protocol as needed Musculsk- pressure ulcer prophylaxis. Bedrest. Wounds- none Nutrition- NPO Disposition: plan was for admissio to ICU; ongoing hemodyn instability; continued arrest; Patient Clinical Status: critical, unstable Code Status: full code Total Critical Care time is 120 minutes, excluding procedures/teaching Matthew Chen MD Drapery Worker (Electronically Signed)
--- NOTE | 2020-01-14 20:57 | DS ---
Discharge Summary Patient Name: Ignacio Santiago Case Date of Admission: 01/14/2020 Date of Discharge: 01/14/2020 Attending: Dr Matthew Chen (ntensivist) Consultants: Dr Tyler Levy (cardiology) Admitting Diagnoses: -Cardiac Arrest -Acute hypoxic respiratory failure -Inferior Wall STEMI -viral illness -Upper GI hemorrhage -Encephalopathy -LINNEA -Shock liver Discharge Diagnoses: -Cardiac Arrest -Acute hypoxic respiratory failure -Inferior Wall STEMI -viral illness -Upper GI hemorrhage -Encephalopathy -LINNEA -Shock liver HPI/Hospital Course: 54y M w/pmhx of HTN, GERD; presented from home via EMS for shortness of breath x1 day (as per history later). She told us later that subjective fever/ chills x1-2 days, not feeling well yesterday. History given was recent travel from [place] to [place]. In ER on arrival he was to be seen by ER physician and on initial arrival and contact he became unresponsive, ambrocio/blue appearing. CPR was started by them immediately, given 1 shock, then PEA rhythm, multiple EPI/bicarb, noted to be hypoxic during code and given history of travel recently he was given bolus tpa 50mg IV in ER, narcan 4mg. ROSC was achieved, he was intubated at some point during code. Post code i evaluated patient , he was unresponsive, bitting down, given rocuronium 50mg iv push by me. His pupils were sluggish but reactive, cough+. BP slowly dropped and he was started on levophed. A left femoral central line was already in place by ER during code, as well as I/O. Of note, given his symptoms from EMS he was told to be suspected a PUI for COVID19 and placed on contact/airborne precautions before the arrest. A second EKG was done during my evaluation and it demonstrated acute ST elevations in inferior leads compared to 1st post code EKG. INterventional cardiology had arrived for evaluation. IV heparin bolus 4000u were given as a push prior to Cardiology arrival by ED. During evaluation, we decided a possible cath may be required. On further evaluation he started to have bright red blood being suctioned from OGT and hence due to ongoing GI Bleeding crushed aspirin/plavix were not given in addition to a IV heparin drip.. His hemodynamics started to deteriorate further, vasopressin added. We pushed for a CTA of chest given this history of URI symptoms to evaluation of pneumonitis, r/o PE, possible Aortic dissection for small pericardial effusion seen on bedside ECHO. Unclear if a cath would be attempted at this point given bright blood coming from OGT. He was taken to CT scan where shortly after being placed on table he lost pulse and was PEA, cpr restarted and another 4 rounds of CPR given with ROSC, now on epinephrine infusion. He was set up for CT and patient arrested again for 10 min PEA. I talked to family in waiting room, updated them of current events and ongoing CPR, this discussion was had with Dr Levy. On return to CT scan, ROSC achieved. CT scan completed. Brought to ICU, this after 3 cardiac arrests with ongiong hemodynamic instability. In ICU, he arrest briefly after arrival. This time a 45 min code was ongoing, emergent IABP placement into Right femoral artery by St Levy for some attempted hemodynamic stabilization, 2 units O-negative blood transfused emergently for ongoing upper GI bleeding via OGT (bright red). Patient unable to obtain pulse after 45min, became asystolic with intermittent ventricular escape beats, no pulse, no spontaneous respirations. He was pronounced at 1857 on 01/14/2020, family aware. clothing examiner notified and accepted patient for evaluation/ autopsy. Procedures/Imaging: CTA chest Laboratory/Data: see chart Discharge Medications: none Diet: none Activity: none Condition upon discharge: ; 185 on 01/14/2020 Disposition: Code Status: full code Total Discharge time 20 minutes Matthew Chen MD Extractor And Wringer Operator (Electronically Signed)
--- NOTE | 2020-01-14 20:58 | PN ---
Progress Note - Progress Note Date of Service: 01/14/20 Note: Arterial Line Procedure Note Indication: frequent arterial blood gases , invasive hemodynamic monitoring Diagnosis: cardiac arrest, acute hypoxic respiratory failure Performed by: Matthew Chen MD Consent: Emergent [place] Protocol: Time-out was performed and the correct patient and site were verified - Prior labs/history was reviewed prior to procedure - Full sterile precautions with chlorhexidine/full drapes/gowns/gloves utilized - Left femoral artery visualized with US - Vessel accessed with return of pulsatile blood. One attempt was made to access vessel. A cathetor was threaded over wire into vessel. Good arterial waveform was observed on monitor. - Arterial Catheter was sutured to site; dressing applied to site. EBL <5 cc No immediate complications noted, patient tolerated procedure well. Matthew Chen MD Forensic Science Examiner (Electronically Signed)
--- NOTE | 2020-01-14 21:01 | PN ---
Progress Note - Progress Note Date of Service: 01/14/20 Note: Code Note patient had PEA arrest in ICU CPR started he was on airborne and contact precautions the whole time. Multiple epi, bicarb, calcium, amio bolus, lidocaine bolus given. Emergent IABP placed by Dr Levy. 2 PRBC emergently transfused. Rhythm PEA then asystolic with occassional ventricular escape beats noted. 45min of CPR performed no ROSC achieved. Patient pronounced at 1857 on 01/14/2020 I was code leader. Family notified of . [place] notified of . Patient to remain on airborne and contact precautions. Matthew Chen MD Drill Punch Operator
--- NOTE | 2020-01-15 10:49 | PRO ---
INTRA-AORTIC BALLOON PLACEMENT REPORT: DATE OF PROCEDURE: 01/14/20 - ROOM #ICU-15 INDICATION FOR THE PROCEDURE: The patient with shock with EKG abnormalities suggesting acute ST segment elevation inferior wall myocardial infarction with in need of attempts at hemodynamic support with intra-aortic balloon pump placed bedside in the intensive care unit. Procedure was placement of a 40 cc intra-aortic balloon pump via the right femoral artery. PROCEDURE IN DETAIL: The patient was prepped and draped in sterile fashion. Of note, an existing arterial catheter in the left femoral artery was attempted to be utilized for an approach, but unfortunately the guidewire could not be advanced in it. As such decision was made to utilize the right femoral artery. Dr. Chen the dip lube operator had cannulated the right femoral artery and I placed the intra-aortic balloon sheath, the intra-aortic balloon pump was then placed. Because the patient was subsequently in cardiac arrest, we programmed the balloon pump to go on pressure support with contractions of the patient. This was carried out. The balloon pump demonstrated inflation time with the compressions. Of note, Dr. Chen ran the ABC alert during that time, unfortunately the patient did not develop return of spontaneous circulation with stabilization. [id number] #: [id number] [id number]
== END 2020-01-14 18:57 | disposition expired | DRG 270 ==
LOC: ED 14:21 → ICU 15:09
PROVIDERS: ADMIT Internal Medicine Critical Care Medicine; ATTEND Internal Medicine Critical Care Medicine
PROC: 5A1935Z Respiratory Ventilation, Less than 24 Consecutive Hours (ICD-10-PCS; 2020-01-14)
PROC: 0BH17EZ Insertion of Endotracheal Airway into Trachea, Via Natural or Artificial Opening (ICD-10-PCS; 2020-01-14)
PROC: 30233N1 Transfusion of Nonautologous Red Blood Cells into Peripheral Vein, Percutaneous Approach (ICD-10-PCS; 2020-01-14)
PROC: 04HY32Z Insertion of Monitoring Device into Lower Artery, Percutaneous Approach (ICD-10-PCS; 2020-01-14)
PROC: 4A133B1 Monitoring of Arterial Pressure, Peripheral, Percutaneous Approach (ICD-10-PCS; 2020-01-14)
PROC: 4A133J1 Monitoring of Arterial Pulse, Peripheral, Percutaneous Approach (ICD-10-PCS; 2020-01-14)
PROC: 5A12012 Performance of Cardiac Output, Single, Manual (ICD-10-PCS; 2020-01-14)
PROC: 06HM33Z Insertion of Infusion Device into Right Femoral Vein, Percutaneous Approach (ICD-10-PCS; 2020-01-14)
PROC: 5A02210 Assistance with Cardiac Output using Balloon Pump, Continuous (ICD-10-PCS; principal; 2020-01-14 18:30)
DX: I21.19 ST elevation (STEMI) myocardial infarction involving other coronary artery of inferior wall (principal); J96.01 Acute respiratory failure with hypoxia; K72.00 Acute and subacute hepatic failure without coma; N17.9 Acute kidney failure, unspecified; K92.2 Gastrointestinal hemorrhage, unspecified; G93.40 Encephalopathy, unspecified; I10 Essential (primary) hypertension; K21.9 Gastro-esophageal reflux disease without esophagitis; I46.2 Cardiac arrest due to underlying cardiac condition; B34.9 Viral infection, unspecified
CPT/HCPCS: 33967; 36415; 71275; 74174; 80053; 83605; 83880; 84484; 85025; 86078; 86850; 86900; 86901; 86922; 87040; 87077; 87205; 93005; 96374; 99285; A9270-GY; C1725; J0171; J0282; J1644; J2310; J2997; J3475; J7060; P9040; Q9967